=== PATIENT | female | born 1960 | race Two or more races ===

== ENCOUNTER 2024-07-10 07:29 | Outpatient (CLI) | payer OTHER | END 2024-07-10 07:30 | disposition home or self-care (01) | LOC: NUCLEAR 07:29 | PROVIDERS: ATTEND Internal Medicine Gastroenterology | DX: R10.9 Unspecified abdominal pain (principal); R19.7 Diarrhea, unspecified ==

== ENCOUNTER 2024-07-17 07:22 | Outpatient (CLI) | payer OTHER | END 2024-07-17 07:23 | disposition home or self-care (01) | LOC: NUCLEAR 07:22 | PROVIDERS: ATTEND Internal Medicine Gastroenterology | DX: K31.84 Gastroparesis (principal); R10.9 Unspecified abdominal pain ==